=== PATIENT | female | born 1975 | race Caucasian/White ===

== ENCOUNTER → 2018-10-23 | Day surgery (SDC) | payer OTHER ==
[2018-10-19 13:45] LABS: BILIRUBIN,URINE NEGATIVE (NEGATIVE); CLARITY,URINE CLEAR (CLEAR); COLOR,URINE YELLOW (YELLOW); KETONES,URINE NEGATIVE (NEGATIVE); LEUKOCYTE ESTERASE ,URINE NEGATIVE (NEGATIVE); NITRITE,URINE NEGATIVE (NEGATIVE); PROTEIN,URINE DIPSTICK NEGATIVE (NEGATIVE); URINE UROBILINOGEN 1 mg/dL (0.2 - 1)
[2018-10-19 13:45] LABS: BASOPHILS % 0.3 % (0.0-1.0); EOSINOPHILS # (AUTO) 0.1 (0.0-0.4); EOSINOPHILS % 1.5 % (0.0-6.0); HEMATOCRIT 41.9 % (34.2-44.1); HEMOGLOBIN 13.9 g/dL (12.0-16.0); LYMPHOCYTES # (AUTO) 1.8 (1.0-3.2); LYMPHOCYTES % 26.6 % (18.0-39.1); MEAN CORPUSCULAR HEMOGLOBIN 28.1 pg (28-32); MEAN CORPUSCULAR HGB CONC 33.2 g/dL (31-35); MEAN CORPUSCULAR VOLUME 84.8 fL (81-99); MONOCYTES # (AUTO) 0.4 (0.2-0.8); MONOCYTES % 6.1 % (4.4-11.3); NEUTROPHILS # (AUTO) 4.3 (2.1-6.9); NEUTROPHILS % 65.2 % (38.7-80.0); PLATELET COUNT 345 x10e3/uL (140-360); RED BLOOD COUNT 4.94 x10e6/uL (3.6-5.1); RED CELL DISTRIBUTION WIDTH 12.6 % (11.7-14.4)
[2018-10-19 14:14] LABS: ALANINE AMINOTRANSFERASE 18 IU/L (0-55); ALBUMIN 4.4 g/dL (3.5-5.0); ALKALINE PHOSPHATASE 50 IU/L (40-150); BILIRUBIN,DIRECT 0.2 mg/dL (0.0-0.5)
[2018-10-19 14:27] LABS: HIV 1&2 AB SCREEN NON-REACTIVE (NONREACTIVE)
[~2018-10-23] MED LIST: ACETAMINOPHEN 1000 MG/100 ML IV ONE; ATENOLOL50 MG PO; BUPIVACAINE 0.25%/EPI 30ML SDV INJ ONE; CEFOXITIN 1GM/ D5W 50ML 100 ML IV ONE; CYMBALTA60 MG PO; DEXAMETHASONE SOD PHOS INJ 4 MG/ML VIAL ONE; FENTANYL CITRATE/PF 100MCG/2 ML INJ ONE; FISH OIL 1,0001 EAC2 PO; GLYCOPYRROLATE INJ 1MG/ 5 ML SYR ONE; IBUPROFEN 800MG/ 250ML 250 ML IV ONE; LIDOCAINE HCL 2% LOCAL INJ 5 ML SDV VIAL INJ ONE; MIDAZOLAM HCL 2 MG/2 ML VIAL ONE; NEOSTIGMINE 5 MG/5ML SYR ONE; NEXIUM40 MG PO; ONDANSETRON HCL INJ 2MG/ML 2ML 2 MG/ML VIAL ONE; PROBIOTIC & AC1 EACH PO; PROPOFOL IV EMULSION 10 MG/ML 20 ML VIAL ONE; ROCURONIUM BROMIDE 10 MG/ML 5ML VIAL ONE; SEVOFLURANE INHAL SOLN 250 ML PEN BTL ONE; VITAMIN C100 MG PO; VITAMIN D400 UNIT PO
--- OUTSIDE RECORDS SUMMARY | 2018-10-23 05:39 | XMS REPORT ---
Author Author Bunny Woods Organization [employer] Address Unknown Phone Unavailable Care Team Providers Care Foundry Tender Name Role Phone Bunny Woods CP Unavailable Encounters Encounter Location Date [facility] [place] September 04, 2013 F/U ECHO, [facility], [facility] [place] September 06, 2013 chest pressure [facility] [place] September 03, 2013 [facility], TRIPONIN, D-DIMER [facility] [place] [place] September 04, 2013 ECHO [facility] [place] September 04, 2013 Problems Problem Type Condition ICD-9 Code Onset Dates Condition Status Assessment Palpitations 785.1 Active Assessment Shortness of breath 786.05 Active Assessment Chest pain, other 786.59 Active Assessment Dizziness and giddiness 780.4 Active Social History Social History Element Qualifiers Date Reported Diet: . Are you on a special diet? No September 06, 2013 Caffeine: . Do you drink caffeine? Yes, How much a day? 1 cup or more 2, What type? Coffee September 06, 2013 Exercise: . Do you exercise? No September 06, 2013 Smoking: no. Are you a: Never smoker 13 yrs ago September 06, 2013 Alcohol: socially. Do you drink alcohol? Yes, How often? Socially September 06, 2013 Summary Purpose [employer] Submission
--- OUTSIDE RECORDS SUMMARY | 2018-10-23 05:39 | XMS REPORT ---
Author Author Bunny Woods Organization [employer] Address Unknown Phone Unavailable Care Team Providers Care Video Production Intern Name Role Phone Bunny Woods CP Unavailable Allergies No Known Allergies Problems No Known Problems Medications No Known Medications Results No Known Results Summary Purpose [employer] Submission
--- OUTSIDE RECORDS SUMMARY | 2018-10-23 05:39 | XMS REPORT ---
Author Author Bunny Woods Organization [employer] Address Unknown Phone Unavailable Care Team Providers Care Sap Portal Consultant Name Role Phone Bunyn Woods CP Unavailable Allergies, Adverse Reactions, Alerts Substance Reaction Event Type N.K.D.A. Info Not Available Non Drug Allergy Encounters Encounter Location Date [facility] [place] September 04, 2013 F/U ECHO, NST, LABS [facility] [place] [place] September 06, 2013 chest pressure Chuck TAM September 03, 2013 [facility], TRIPONIN, D-DIMER Chuck TAM September 04, 2013 ECHO Chuck TAM September 04, 2013 Problems Problem Type Condition ICD-9 Code Onset Dates Condition Status Assessment Palpitations 785.1 Active Assessment Shortness of breath 786.05 Active Assessment Chest pain, other 786.59 Active Assessment Dizziness and giddiness 780.4 Active Medications Medication Code System Code Instructions Start Date End Date Status D[facility] [address]-24 40 MG Orally Once a day Active 1 capsule Atenolol [facility] [address]-25 25 MG Orally Once a day Active 1 tablet Prozac [facility] [address]-47 10 MG Orally twice a day Active 1 capsule in the morning Nitroglycerin [facility] [address]-49 0.4 MG Sublingual Once a day September 03, 2013 Active 1 tablet under the tongue and allow to dissolve as needed Social History Social History Element Qualifiers Date [...] Yes, How often? Socially September 06, 2013 Vital Signs Date/Time: September 03, 2013 Weight 181 lbs Cardiac Monitoring Heart Rate 64 /min Blood Pressure Diastolic 70 mm Hg Blood Pressure Systolic 112 mm Hg Summary Purpose [employer] Submission
--- OUTSIDE RECORDS SUMMARY | 2018-10-23 05:39 | XMS REPORT ---
Author Author Bunny Woods Organization [employer] Address Unknown Phone Unavailable Care Team Providers Care Cattle Killer Name Role Phone Bunny Woods CP Unavailable [...]
--- OUTSIDE RECORDS SUMMARY | 2018-10-23 05:39 | XMS REPORT | Continuity of Care Document ---
Author Author [employer] [facility] [employer] Address Unknown Phone Unavailable Care Team Providers Care Multiple Tube Winding Machine Operator Name Role Phone [employer] Unavailable Unavailable Problems Problem Status Onset Date Classification Date Reported Comments Source Palpitations Active Diagnosis 10/03/2013 [facility] Shortness of breath Active Diagnosis 10/03/2013 [facility] Chest pain, other Active Diagnosis 10/03/2013 [facility] Dizziness and giddiness Active Diagnosis 10/03/2013 [facility] Medications Medication Details Route Status Patient Instructions Ordering Provider Order Date Source Nitroglycerin 1 tablet under the tongue and allow to dissolve as needed Sublingual Active 0.4 MG Sublingual Once a day Chuck 09/03/2013 [facility] Omeprazole 1 capsule Orally Active 40 MG Orally Once a day [facility] Atenolol 1 tablet Orally Active 25 MG Orally Once a day [facility] Cardiovascular Prozac 1 capsule in the morning Orally Active 10 MG Orally twice a day [facility] Allergies, Adverse Reactions, Alerts Substance Category Reaction Severity Reaction type Status Date Reported Comments Source N.K.D.A. Adverse Reaction Info Not Available Adverse Reaction Active 09/06/2013 [facility] Immunizations No Data Provided for This Section Results No Data Provided for This Section Pathology Reports No Data Provided for This Section Diagnostic Reports No Data Provided for This Section Consultation Notes No Data Provided for This Section Discharge Summaries No Data Provided for This Section History and Physicals No Data Provided for This Section Vital Signs Vital Sign Value Date Comments Source Weight 184 09/06/2013 [facility] Heart Rate 64 09/06/2013 [facility] Diastolic (mm Hg) 68 09/06/2013 [facility] Systolic (mm Hg) 114 09/06/2013 [facility] Weight 181 09/03/2013 [facility] Heart Rate 64 09/03/2013 [facility] Diastolic (mm Hg) 70 09/03/2013 [facility] Systolic (mm Hg) 112 09/03/2013 [facility] Encounters Location Location Details Encounter Type Encounter Number Reason For Visit Attending Provider ADM Date DC Date Status Source Chuck MILLS [place] chest pressure [id number] 09/03/2013 09/03/2013 Cardiovascular Chuck MILLS PA chest pressure [id number] 09/03/2013 09/03/2013 Cardiovascular Chuck MILLS PA chest pressure [id number] 09/03/2013 09/03/2013 Cardiovascular Chuck MILLS PA chest pressure [id number] 09/03/2013 09/03/2013 Cardiovascular Chuck MILLS PA chest pressure [id number] 09/03/2013 09/03/2013 Cardiovascular Chuck WHITLEYMB, TRIPONIN, D-DIMER [id number] 09/04/2013 09/04/2013 Cardiovascular Chuck SOMMER, TRIPONIN, D-DIMER [id number] 09/04/2013 09/04/2013 Cardiovascular Chuck TAM CKMB, TRIPONIN, D-DIMER [id number] 09/04/2013 09/04/2013 Cardiovascular Chuck SOMMER, TRIPONIN, D-DIMER [id number] 09/04/2013 09/04/2013 Cardiovascular Chuck SOMMER, TRIPONIN, D-DIMER [id number] 09/04/2013 09/04/2013 Cardiovascular Chuck TAM NST [id number] 09/04/2013 09/04/2013 [facility]g[place] TAM NST [id number] 09/04/2013 09/04/2013 [facility] [place] TAM NST [id number] 09/04/2013 09/04/2013 [facility] Chuckg[place] TAM NST [id number] 09/04/2013 09/04/2013 [facility] Chuck TAM NST [id number] 09/04/2013 09/04/2013 [facility] Chuck TAM ECHO [id number] 09/04/2013 09/04/2013 [facility] Chuck TAM ECHO [id number] 09/04/2013 09/04/2013 [facility] Chuck TAM ECHO [id number] 09/04/2013 09/04/2013 [facility] Chuck TAM ECHO [id number] 09/04/2013 09/04/2013 [facility] Chuck TAM ECHO [id number] 09/04/2013 09/04/2013 [facility] Chuckgerman TAM F/U ECHO, NST, LABS [id number] 09/06/2013 09/06/2013 [facility] Chukc TAM F/U ECHO, NST, LABS [id number] 09/06/2013 09/06/2013 [facility] Chuck TAM F/U ECHO, NST, LABS [id number] 09/06/2013 09/06/2013 [facility] Chuck TAM F/U ECHO, NST, LABS [id number] 09/06/2013 09/06/2013 [facility] Chuck TAM F/U ECHO, NST, LABS [id number] 09/06/2013 09/06/2013 [facility] Procedures No Data Provided for This Section Assessment and Plan No Data Provided for This Section Plan of Care No Data Provided for This Section Social History Social History Date Source Social History ElementQualifiersDate Reported Diet: . Are you on a [...] Yes, How often? Socially September 06, 2013 09/06/2013 [facility] Family History No Data Provided for This Section Advance Directives No Data Provided for This Section Functional Status No Data Provided for This Section
--- OUTSIDE RECORDS SUMMARY | 2018-10-23 05:39 | XMS REPORT ---
Author Author Bunny Woods Organization [employer] Address Unknown Phone Unavailable Care Team Providers Care Digital Media Intern Name Role Phone Bunny Woods CP [...]
--- OUTSIDE RECORDS SUMMARY | 2018-10-23 05:39 | XMS REPORT ---
Author Author [facility] Address Unknown Phone Unavailable Care Team Providers Care Food And Nutrition Services Supervisor Name Role Phone Unavailable Unavailable Payers Payer Name Policy Type Policy Number Effective Date Expiration Date Problems This patient has no known problems. Allergies, Adverse Reactions, Alerts Allergy Name Allergy Type Status Severity Reaction(s) Onset Date Inactive Date Treating Clinician Comments No Known Allergies DA Active U 2015-09-29 00:00:00 Medications This patient has no known medications. Results Test Description Test Time Test Comments Text Results Atomic Results Result Comments - XR CHEST 2 V 2018-06-19 17:21:00 FAX: Hakeem Newell MD [phone] [place]: St: REG FAX: Boy Irizarry MD [phone] Name: TENA HELM [facility] : 1975 Age/S: 43/F [address] [place] [address] Unit #: [id number] Loc: [place] [address] Phys: Boy Figueroa MD Acct: [id number] Dis Date: Status: REG CLI PHONE #: [phone] Exam Date: 06/19/2018 1703 FAX #: [phone] Reason: R05, CHRONIC COUGH. EXAMS: CPT CODE: [id number] XR CHEST 2 V 14571 PROCEDURE: CHEST TWO VIEW INDICATION: Cough. COMPARISON: Chest 2 views 07/13/2016 FINDINGS: Cardiovascular: Normal cardiac silhouette. Normal thoracic aorta. Mediastinum: No mediastinal or hilar lymphadenopathy. Lungs: No focal con solidation. No parenchymal mass. Pleura: No pleural effusion. No pneumothorax. Bones: No acute osseous abnormality. IMPRESSION: No acute radiographic abnormality. SL: [id number] at 1721 Reported and signed by: Doom Galeano M.D. CC: Hakeem FIGUEROA Technologist: RT Gregg(Astrid) Trnscrd Date/Time/By: 06/19/2018 (5918) : By: [email or web address] Orig Print D/T: S: 06/19/2018 (4453) PAGE 1 Signed Report
--- OUTSIDE RECORDS SUMMARY | 2018-10-23 05:39 | XMS REPORT ---
Author Author Bunny Woods Organization [employer] Address Unknown Phone Unavailable Care Team Providers Care Forging Machine Operator Name Role Phone Bunny Woods CP Unavailable Allergies, Adverse Reactions, Alerts [...] Instructions Start Date End Date Status Dosage Nitroglycerin [facility] [address]-49 0.4 MG Sublingual Once a day September 03, 2013 Active 1 tablet under the tongue and allow to dissolve as needed [facility] [address]-74 10 MG Orally twice a day Active 1 capsule in the morning Omeprazole [facility] [address]-41 40 MG Orally Once a day Active 1 capsule Atenolol [facility] [address]-14 25 MG Orally Once a day Active 1 tablet Social History Social History Element Qualifiers Date [...] September 06, 2013 Vital Signs Date/Time: September 06, 2013 Weight 184 lbs Cardiac Monitoring Heart Rate 64 /min Blood Pressure Diastolic 68 mm Hg Blood Pressure Systolic 114 mm Hg Summary Purpose eClinicalWorks Submission
[2018-10-23 10:55] VITALS: BP 114/78
--- NOTE | 2018-10-23 14:01 | Operative Report ---
DATE OF PROCEDURE: 10/23/2018 SURGEON: Jimmy Wilkinson MD PREOPERATIVE DIAGNOSIS: A 43-year-old female, 4, para 3 with pelvic pressure and low backache and persistent left ovarian complex cystic mass for more than a year. POSTOPERATIVE DIAGNOSIS: A 43-year-old female, 4, para 3 with pelvic pressure and low backache and persistent left ovarian complex cystic mass for more than a year. PROCEDURES DONE: 1. Examination under anesthesia. 2. Pelviscopy. 3. Pelviscopic removal of the left ovarian cyst and left ovary/left oophorectomy. MISDRAW HAND: Misha Appiah M.D. ANESTHESIA: General. FINDINGS AT THE TIME OF SURGERY: On EUA, cervix looks normal, uterus is slightly enlarged, no adnexal mass felt, but the left adnexa is full. On pelviscopy, the uterus looks normal and right ovary looks normal. No pelvic endometriosis. No pelvic adhesions. The left ovarian mass plus cystic mass completely replacing the ovary. There was no normal ovary recognized. There was evidence of previous tubal ligation, removed the left ovary along with the cyst and sent for the pathology. ESTIMATED BLOOD LOSS: Minimal. COMPLICATIONS: No complications. PROCEDURE IN DETAIL: The patient was brought to the operating room, put in the supine position and general anesthesia was given without any problems. After adequate anesthesia, the patient was examined under anesthesia. The findings were as dictated above. Then, she was prepped and draped in the routine fashion and proceeded with the surgery. The patient had a NovaSure before, could not put in the cannula into the uterine cavity, just put in the sponge stick and proceeded with pelviscopy. While lifting up the anterior abdominal wall on either side of the umbilicus with towel clips, I introduced the Veress needle and created the pneumoperitoneum with CO2. After adequate pneumoperitoneum, I made a small incision at the base of the umbilicus and introduced the #11 size trocar and cannula and trocar removed and through the cannula, I introduced the laparoscope, it was in the abdominal cavity. There was no evidence of any injury or the bleeding. The explored, but the bowels were in the pelvis, it was difficult to see. The patient was put in the Trendelenburg position then made a second puncture in the suprapubic area under the vision and introduced the probe and moved the bowels. The left ovarian mass was sitting in the cul-de-sac, filling the cul-de-sac and the uterus was normal. No pelvic adhesions or pelvic endometriosis. The right ovary was normal. There was no normal ovary seen. The cyst was replacing it. Therefore, I decided to remove the left ovary along with the mass and made a second puncture in the left flank and introduced the grasper. With the help of the probe and grasper, I moved the bowels up and held the ovary with a grasper, there was evidence of the tubal ligation. The tube was completely and tubal stumps look normal. The right ovary looks normal. Both tubes look normal. Uterus look normal. Therefore, I introduced the grasper in the second suprapubic puncture holding the mass and through the left-sided incision, I introduced the LigaSure and looking close to ovary,the infundibulopelvic ligament clamped close to the ovary and cauterized and cut in three small bites and that the complete ovary and the mass and I isolated it. There was a small bleeding that was grasped and cauterized once, the bleeding stopped, irrigated the pelvis and the stump looks normal. The pedicle looks normal. Hemostasis was good. Then, the LigaSure removed and the irrigation cannula put in through the left-sided port and irrigated and removed all the fluid, hemostasis was good and put the mass above the uterus anteriorly and grasped it with the grasper, which was going through the suprapubic, but changed the grasper. Another grasper introduced through the lateral side, removed the irrigation cannula, introduced the grasper and held the mass with that one and scope was put in through the suprapubic incision. The 5 mm scope and with the pouch introduced through the umbilical incision and opened and put in the mass into the pouch and removed the pouch and the mass from the umbilical incision aspirated the fluid from the cyst and then the cyst and ovary became small and came out through the umbilical incision and sent for the pathology, it looks benign. Then, reintroduced the scope through the umbilical incision and filled with the gas again because we lost the gas when we were removing the mass and then we visualized. Irrigation cannula introduced through the suprapubic incision and irrigated the pelvis and removed the fluid. The hemostasis appear satisfactory. No bleeding from anywhere and evacuated the pneumoperitoneum, removed all the instruments from the abdominal wall and cavity and closed the incisions with subcuticular stitches using 2-0 Vicryl for the underneath and 4-0 Monocryl for the subcuticular and then injected the Marcaine 0.25% with epinephrine for the post pain relief and the sponge removed from the vagina. The urine looks clear and urine output good. The Grier was discontinued and the patient moved to the recovery room in a stable condition. Instrument and swab counts were correct and estimated blood loss minimal, and the patient was stable in the recovery. MD PAT Augustine/MODL /[id number]
== END | disposition home or self-care (01) ==
LOC: OR 05:35
PROVIDERS: ATTEND Specialist
DX: N83.12 Corpus luteum cyst of left ovary (principal); N83.292 Other ovarian cyst, left side; N83.02 Follicular cyst of left ovary; K21.9 Gastro-esophageal reflux disease without esophagitis; I10 Essential (primary) hypertension; R00.2 Palpitations; M54.5 Low back pain; Z01.812 Encounter for preprocedural laboratory examination
CPT/HCPCS: 36415; 58661; 80076; 81003; 81025; 84702; 85025; 86850; 86900; 87390; 88305; G0433; G0435; J0131; J1100; J2001; J2250; J2405; J2704; J3010; J3490